=== PATIENT | female | born 1995 | race Caucasian/White ===

== ENCOUNTER → 2017-04-28 | Outpatient (CLI) | payer BC ==
[~2017-04-28] MED LIST: NAPR500T PO
== END ==
LOC: M SMT 09:32
PROVIDERS: ATTEND Obstetrics & Gynecology
DX: Z11.3 Encounter for screening for infections with a predominantly sexual mode of transmission (principal)
CPT/HCPCS: 36415; 86705; 86709; 86780; 86803; 87340; 87491; 87591; 87899; G0123

== ENCOUNTER → 2018-01-21 | Outpatient (REF) | payer BC | LOC: M LAB REF 21:19 | DX: J02.9 Acute pharyngitis, unspecified (principal) | CPT/HCPCS: 87430 ==

== ENCOUNTER → 2018-04-10 | Outpatient (REF) | payer BC ==
[2018-04-10 19:32] LABS: APPEARANCE, URINE CLOUDY (CLEAR); BACTERIA, URINE AUTO 2+ (NEGATIVE); BILIRUBIN, URINE AUTO NEGATIVE (NEGATIVE); BLOOD, URINE BLOOD 2+ (NEGATIVE); COLOR, URINE YELLOW (YELLOW); GLUCOSE, URINE (UA) AUTO NEGATIVE (NEGATIVE); KETONE, URINE AUTO 1+ mg/dL (NEGATIVE); LEUKOCYTE ESTERASE, URINE AUTO 3+ (NEGATIVE); MUCUS, URINE SMALL (NEGATIVE); NITRITE, URINE AUTO POSITIVE (NEGATIVE); PROTEIN, URINE AUTO 2+ mg/dL (NEGATIVE); RBC, URINE AUTO 12 /HPF (0-3); SPECIFIC GRAVITY URINE AUTO 1.014 (1.002-1.035); SQUAMOUS EPITHELIAL CELL UR AU 8 /HPF (0-6); UROBILINOGEN, URINE AUTO 0.2 mg/dL (0.0-2.0); WBC, URINE AUTO TNTC /HPF (0-3)
== END ==
LOC: M LAB REF 16:38
DX: N39.0 Urinary tract infection, site not specified (principal); J02.9 Acute pharyngitis, unspecified

== ENCOUNTER → 2019-01-22 | Outpatient (REF) | payer BC ==
[~2019-01-22] MED LIST changes: +NAPR-837 PO; -NAPR500T PO
[2019-01-22 17:40] LABS: URINE PREG TEST POSITIVE (NEGATIVE)
== END ==
LOC: M LAB REF 16:28
PROVIDERS: ATTEND Physician Assistant Medical
DX: Z32.00 Encounter for pregnancy test, result unknown (principal)

== ENCOUNTER → 2019-01-24 | Outpatient (REF) | payer BC | LOC: M LAB REF 15:10 | PROVIDERS: ATTEND Physician Assistant | DX: Z31.81 Encounter for male factor infertility in female patient (principal) ==

== ENCOUNTER → 2019-02-23 | Outpatient (CLI) | payer BC ==
[2019-02-23 18:52] LABS: BASO % 0.2 % (0.0-1.0); EOS # 0.1 10^3/uL (0.0-0.50); EOS % 0.8 % (0.0-3.0); HEMATOCRIT 43.2 % (36.0-47.0); HEMOGLOBIN 14.2 g/dl (12.0-15.5); LYMPH # 1.5 10^3/uL (1.5-6.5); LYMPH % 16.4 % (24.0-44.0); MEAN CORPUSCULAR HEMOGLOBIN 32.3 pg (27.0-33.0); MEAN CORPUSCULAR HGB CONC 32.9 g/dl (32.0-36.5); MEAN CORPUSCULAR VOLUME 98.4 fl (80.0-96.0); MONO # 0.5 10^3/uL (0.0-0.8); MONO % 5.1 % (0.0-5.0); NEUTROPHILS # 6.9 10^3/uL (1.8-7.7); NEUTROPHILS % 77.1 % (36.0-66.0); PLATELET COUNT, AUTOMATED 304 10^3/uL (150-450); RED BLOOD COUNT 4.39 10^6/uL (4.00-5.40)
[2019-02-23 21:11] LABS: CHLAMYDIA DNA AMPLIFICATION POSITIVE (NEGATIVE); GC DNA AMPLIFICATION NEGATIVE (NEGATIVE)
[2019-02-26 10:31] LABS: HIV 1&2 SCREEN CENTAUR NEGATIVE (NEGATIVE); RUBELLA IgG QUALITATIVE IMMUNE (IMMUNE)
== END ==
LOC: M SMT 13:59
PROVIDERS: ATTEND Advanced Practice Midwife
DX: Z34.81 Encounter for supervision of other normal pregnancy, first trimester (principal); Z3A.00 Weeks of gestation of pregnancy not specified

== ENCOUNTER → 2019-03-30 | Outpatient (REF) | payer BC | LOC: M LAB REF 13:06 | PROVIDERS: ATTEND Advanced Practice Midwife | DX: Z34.82 Encounter for supervision of other normal pregnancy, second trimester (principal) ==

== ENCOUNTER → 2019-04-27 | Outpatient (REF) | payer BC ==
[2019-04-27 19:09] LABS: CHLAMYDIA DNA AMPLIFICATION NEGATIVE (NEGATIVE); GC DNA AMPLIFICATION NEGATIVE (NEGATIVE)
== END ==
LOC: M LAB REF 17:13
PROVIDERS: ATTEND Obstetrics & Gynecology
DX: Z34.82 Encounter for supervision of other normal pregnancy, second trimester (principal); Z3A.00 Weeks of gestation of pregnancy not specified

== ENCOUNTER → 2019-05-04 | Outpatient (CLI) | payer BC ==
--- NOTE | 2019-05-04 11:18 | REP ---
OB ULTRASOUND: Real-time sonographic evaluation of the gravid uterus is performed. There is a single living intrauterine gestation. Estimated gestational age 20 weeks 2 days, EDC 09/19/2019. Today's measurements indicate appropriate growth. BPD 50 mm = 21 weeks 1 day, 71st percentile HC 187 mm = 21 weeks 0 days, 70th percentile AC 151 mm = 20 weeks 2 days, 51st percentile Femur length 35 mm = 21 weeks 0 days, 67th percentile HC/AC ratio 1.24 at the upper limits of normal range 1.06-1.24. Estimated weight 370 grams, 60th percentile. Cervix is closed and measures 4.1 cm in length. heart rate 136 beats per minute. SEEN/GROSSLY UNREMARKABLE Lateral ventricles Yes Posterior fossa Yes Upper lip Yes Four-chamber heart Yes LVOT Yes RVOT Yes Stomach Yes Cord insertion Yes Three vessel cord Yes Kidneys Yes Bladder Yes Spine Yes position: Vertex. Placenta: Anterior and grade 0 with no previa or abruption. Amniotic fluid: Appears within normal limits. Electronically Signed by Cory Stark MD 05/06/2019 07:22 P
== END ==
LOC: M RAD 09:47
PROVIDERS: ATTEND Advanced Practice Midwife
DX: Z34.82 Encounter for supervision of other normal pregnancy, second trimester (principal); Z3A.20 20 weeks gestation of pregnancy

== ENCOUNTER → 2019-06-27 | Outpatient (CLI) | payer BC ==
[2019-06-27 13:31] LABS: HEMATOCRIT 37.4 % (36.0-47.0); HEMOGLOBIN 12.6 g/dl (12.0-15.5); MEAN CORPUSCULAR HEMOGLOBIN 34.1 pg (27.0-33.0); MEAN CORPUSCULAR HGB CONC 33.7 g/dl (32.0-36.5); MEAN CORPUSCULAR VOLUME 101.1 fl (80.0-96.0); PLATELET COUNT, AUTOMATED 222 10^3/uL (150-450); WHITE BLOOD COUNT 8.2 10^3/uL (4.0-10.0)
== END ==
LOC: M SMT 09:02
PROVIDERS: ATTEND Advanced Practice Midwife
DX: Z34.02 Encounter for supervision of normal first pregnancy, second trimester (principal); Z36.89 Encounter for other specified antenatal screening

== ENCOUNTER → 2019-08-27 | Outpatient (REF) | payer OTHER | LOC: M LAB REF 16:57 | PROVIDERS: ATTEND Obstetrics & Gynecology | DX: Z34.83 Encounter for supervision of other normal pregnancy, third trimester (principal) ==

== ENCOUNTER 2019-08-30 17:00 | Outpatient (CLI) | payer OTHER ==
[~2019-08-30] VITALS: Ht 160 cm; Wt 64.0 kg
[2019-08-30 17:32] VITALS: BP 112/75
[2019-08-30] MEDS ORDERED: PRENTAB9 PO (18:15)
[2019-08-30 19:22] VITALS: BP 128/73
== END 2019-08-30 19:39 | disposition home or self-care (01) ==
LOC: M LDO 17:00
PROVIDERS: ATTEND Obstetrics & Gynecology
DX: O47.1 False labor at or after 37 completed weeks of gestation (principal); Z3A.37 37 weeks gestation of pregnancy
CPT/HCPCS: 59025; G0378; G0463

== ENCOUNTER 2019-09-12 21:48 | Inpatient (IN) | payer OTHER ==
[~2019-09-12] VITALS: Ht 160 cm; Wt 62.8 kg
[~2019-09-12 21:48] MED LIST changes: +PRENTAB9 PO
[2019-09-12 22:08] VITALS: BP 104/62
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
[2019-09-12] MEDS ORDERED: OXYTOCIN DRIP 30 UNITS in IV 1 EA IV SCH (23:30)
[2019-09-12] MEDS ORDERED: LR 1,000 ML IV SCH (23:30)
[2019-09-12] MEDS ORDERED: LACTATED RINGER'S 1000 ML IV STA (23:30)
[2019-09-13] VITALS (37 sets, daily range): BP systolic 92–131; BP diastolic 52–82
[2019-09-13 00:14] LABS: MEAN CORPUSCULAR HEMOGLOBIN 32.3 pg (27.0-33.0); MEAN CORPUSCULAR HGB CONC 33.3 g/dl (32.0-36.5); MEAN CORPUSCULAR VOLUME 96.8 fl (80.0-96.0); PLATELET COUNT, AUTOMATED 271 10^3/uL (150-450); RED BLOOD COUNT 3.72 10^6/uL (4.00-5.40); WHITE BLOOD COUNT 11.5 10^3/uL (4.0-10.0)
[2019-09-13] MEDS ORDERED: BUTORPHANOL 2 MG/ML INJ (J0595) IV ONE (03:30)
[2019-09-13] MEDS ORDERED: PROMETHAZINE INJ 25 MG/ML VIAL (J2550) IV ONE (03:30)
[2019-09-13] MEDS ORDERED: FENTANYL 2MCG/ML ROPIVACAINE 0.2% IN 0.9% NACL 100ML IVBAG As Ordered ONE (07:18)
[2019-09-13] MEDS: PRENATAL VITAMINS CHEWABLE TABLET PO SCH (09:00)
[2019-09-13] MEDS ORDERED: LACTATED RINGER'S 1000 ML IV PRN (09:45)
[2019-09-13] MEDS ORDERED: diphenhydrAMINE INJ 50MG/ML VIAL (J1200) IV PRN (09:45)
[2019-09-13] MEDS ORDERED: ePHEDrine SULFATE 25 MG/5 ML(5MG/ML) SYRINGE IV PRN (09:45)
[2019-09-13] MEDS ORDERED: EPIDURAL/PCA KEYS XX PRN (09:45)
[2019-09-13] MEDS ORDERED: NALOXONE INJ 0.4 MG/1 ML VIAL (J2310) IV PRN (09:45)
[2019-09-13] MEDS ORDERED: REFRIGERATOR IV KEYS XX PRN (09:45)
[2019-09-13] MEDS ORDERED: FENTANYL/ROPIVACAINE/NACL BAG 100 ML EPIDURAL SCH (09:45)
[2019-09-13] MEDS ORDERED: ONDANSETRON 4MG/2ML VIAL (J2405) IV PRN (09:45)
[2019-09-13] MEDS ORDERED: EPIDURAL COMMENT XX SCH (09:45)
[2019-09-13] MEDS ORDERED: OXYTOCIN DRIP 30 UNITS in IV 1 EA IV SCH (10:05)
[2019-09-13] MEDS ORDERED: IBUPROFEN 800 MG TAB PO PRN (10:15)
[2019-09-13] MEDS ORDERED: METHYLERGONOVINE MALEATE 0.2 MG TAB PO PRN (10:15)
[2019-09-13] MEDS ORDERED: MEASLES,MUMPS,RUBELLA VACCINE INJ (MMR-II) (90707) SC SCH (10:15)
[2019-09-13] MEDS ORDERED: RHOGAM 300 MCG (1500 IU) INJ (J2790) IM SCH (10:15)
[2019-09-13] MEDS ORDERED: ACETAMINOPHEN 500 MG TAB PO PRN (10:15)
[2019-09-13] MEDS ORDERED: DOCUSATE SODIUM 100 MG CAP PO PRN (10:15)
[2019-09-13] MEDS ORDERED: ANUSOL HC CREAM 30GM TOP PRN (10:15)
[2019-09-13] MEDS ORDERED: DIBUCAINE 1% OINTMENT 30GM TOP PRN (10:15)
[2019-09-13] MEDS ORDERED: MOM 30ML SUSPENSION UDC PO PRN (10:15)
[2019-09-13] MEDS ORDERED: ACETAMINOPHEN TAB 650MG DOSE (2X325MG) PO PRN (10:15)
--- NOTE | 2019-09-13 11:23 | DN ---
DATE OF DELIVERY: 09/13/2019 TIME OF : 0908 hours GENDER: Female. SCORE: 9 and 9. WEIGHT: 2810 grams (6 pounds 3 ounces). LACERATIONS: None. ESTIMATED BLOOD LOSS: 200 mL. ANESTHESIA: Epidural. COUNTS: Five laparotomy sponges accounted for prior to and after delivery. DELIVERY NOTE: On 09/13/2019, at 0908 hours, Mrs. Rosales a 24-year-old, 1, now para 1 had a spontaneous vaginal delivery of a live-born female , score 9 and 9. Weight was 2810 grams (6 pounds 3 ounces). Head was delivered occiput anterior (OA) over intact perineum, followed by delivery of right anterior shoulder, left posterior shoulder and corpus. was handed to mom with good cry. Cord was clamped times two. I t was cut by the father of baby under my direction. Placenta was then drained delivered grossly intact. Premixed bag of 500 mL of normal saline with 30 units of Pitocin was then bolused along with uterine massage. The uterus was firm. On inspection, cervix, vagina and perineum was grossly intact, hemostatic. Mom and baby to recovery in stable condition. The couple decided name their daughter,Vaishali. FAYE
[2019-09-13] MEDS: IBUPROFEN 600 MG TAB PO PRN (15:08)
[2019-09-14 06:16] VITALS: BP 81/45
[2019-09-14 06:51] VITALS: BP 89/50
[2019-09-14] MEDS: PRENATAL VITAMINS CHEWABLE TABLET PO SCH (07:52)
[2019-09-14] MEDS: IBUPROFEN 600 MG TAB PO PRN ×2 (07:53→19:27)
[2019-09-14 17:53] VITALS: BP 97/59
[2019-09-15 06:00] VITALS: BP 92/58
[2019-09-15] MEDS: PRENATAL VITAMINS CHEWABLE TABLET PO SCH (08:26)
== END 2019-09-15 12:15 | disposition home or self-care (01) | DRG 807 ==
LOC: M LDO 21:48 → M LDI 23:17 → M OBS 09-13 11:20
PROVIDERS: ADMIT Advanced Practice Midwife; ATTEND Obstetrics & Gynecology
PROC: 10E0XZZ Delivery of Products of Conception, External Approach (ICD-10-PCS; principal; 2019-09-13)
DX: O80 Encounter for full-term uncomplicated delivery (principal); Z37.0 Single live birth; Z3A.39 39 weeks gestation of pregnancy

== ENCOUNTER → 2020-06-24 | Outpatient (CLI) | payer OTHER ==
--- NOTE | 2020-07-15 08:14 | REP ---
COMPLETE OBSTETRICAL ULTRASOUND CLINICAL: Anatomical assessment. TECHNIQUE: Transabdominal obstetrical ultrasound with color Doppler evaluation. FINDINGS: Ultrasound examination demonstrates single live intrauterine in variable presentation. Placenta noted anteriorly and grade 0 without evidence for placenta previa or abruption. Amniotic fluid volume is normal. Cervix measures 4 cm in length and appears closed. Gestational age by current biometrical measurements 18 weeks 5 days with estimated date of delivery 11/20/2020. heart rate 130 beats per minute. Estimated weight 258 grams (48th percentile). Anatomical assessment demonstrates normal cisterna magna, cavum, thalamus, spine, stomach, kidneys/bladder, four chamber heart/cardiac ventricular outflow tracts, three-vessel cord/cord insertion, facial features, and extremities. IMPRESSION: Single live intrauterine in variable presentation demonstrating appropriate estimated weight and growth. Anatomical assessment is complete and normal. No gross abnormalities are identified. MTDD
== END ==
LOC: M RAD 13:51
PROVIDERS: ATTEND Advanced Practice Midwife
DX: Z34.82 Encounter for supervision of other normal pregnancy, second trimester (principal); Z3A.18 18 weeks gestation of pregnancy

== ENCOUNTER → 2020-08-27 | Outpatient (REF) | payer OTHER ==
[2020-08-27 13:15] LABS: HEMATOCRIT 34.4 % (36.0-47.0); HEMOGLOBIN 11.2 g/dl (12.0-15.5); MEAN CORPUSCULAR HEMOGLOBIN 31.8 pg (27.0-33.0); MEAN CORPUSCULAR HGB CONC 32.6 g/dl (32.0-36.5); MEAN CORPUSCULAR VOLUME 97.7 fl (80.0-96.0); PLATELET COUNT, AUTOMATED 263 10^3/uL (150-450); RED BLOOD COUNT 3.52 10^6/uL (4.00-5.40); WHITE BLOOD COUNT 6.8 10^3/uL (4.0-10.0)
== END ==
LOC: M PLALAB 11:05
PROVIDERS: ATTEND Advanced Practice Midwife
DX: Z34.82 Encounter for supervision of other normal pregnancy, second trimester (principal); Z3A.00 Weeks of gestation of pregnancy not specified

== ENCOUNTER → 2020-08-31 | Outpatient (CLI) | payer SELFPAY | LOC: M LABSMTC 11:48 | PROVIDERS: ATTEND Pediatrics | DX: Z20.828 Contact with and (suspected) exposure to other viral communicable diseases (principal) ==

== ENCOUNTER → 2020-10-31 | Outpatient (REF) | payer OTHER | LOC: M SFHCWAGY 16:49 | PROVIDERS: ATTEND Obstetrics & Gynecology | DX: O99.820 Streptococcus B carrier state complicating pregnancy (principal); Z3A.36 36 weeks gestation of pregnancy | CPT/HCPCS: 87081; G0463 ==

== ENCOUNTER 2020-11-19 08:19 | Inpatient (IN) | payer OTHER ==
[~2020-11-19] VITALS: Ht 157.5 cm; Wt 66.6 kg
[2020-11-19] VITALS (35 sets, daily range): BP systolic 87–118; BP diastolic 50–73
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
--- OUTSIDE RECORDS SUMMARY | 2020-11-19 08:24 | CCD ---
Author Author [facility] Organization [facility] Address Unknown Phone Unavailable Care Team Providers Care Hotel Operations Manager Name Role Phone Arleth Rawls Unavailable PROBLEMS Type Condition ICD9-CM Code [id number] Code Onset Dates Condition S tatus SNOMED Code Notes Problem Supervision of other normal Z34.80 Ac tive [id number] ALLERGIES No Known Allergies ENCOUNTERS from 1995 to 2020-10-05 Encounter Location Date Provider Diagnosis [facility] [address] [place] [address] Sep, [facility] Rawls Encounter for superv ision of other normal , third trimester Z34.83 and 31 weeks gestation of Z3A.31 IMMUNIZATIONS Vaccine Route Administration Date Status TDAP [...] School Language: Question Answer Notes Languages spoken: Greenlandic Alcohol Screening: Question Answer Notes Did you have a drink containing alcohol in the past year? No Points 0 Interpretation Negative Tobacco Use: Question Answer Notes Are you a: former smoker How long has it been since you last smoked? 6-12 months REASON FOR REFERRAL No Information VITAL SIGNS Weight 139 lbs Sep, Height 63 in Sep, BMI 24.623 kg/m2 Sep, Blood pressure systolic 114 mm Hg Sep, Blood pressure diastolic 66 mm Hg Sep, MEDICATIONS Medication SIG (Take, Route, Frequency, Duration) [...] Notes Treatment Notes Treatm ent Clinical Notes Sep, Encounter for supervision of other normal , third trimester (ICD-10 - Z34.83) Sep, 31 weeks gestation of (ICD-10 - Z3A.31 ) PLAN OF TREATMENT Next Appt Details 2 Weeks Reason:PN Provider Name:Frankie Edwards, 01:20:00 PM, [address] [place], [address], Follow Up:2 WeeksPN Insurance Providers Payer Name Payer Address Payer Phone Insured Name Patient Relati onship to Insured Coverage Start Date Coverage End Date [facility] [employer] [address] [place] [id number] CITL[place] VARGAS
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
--- OUTSIDE RECORDS SUMMARY | 2020-11-19 08:25 | CCD ---
Author Author [facility] Organization [facility] Address Unknown Phone Unavailable Support Name Relationship Address Phone UE Next Of Kin Unknown Unavailable CITLALY VARGAS Next Of Kin [address] [id number] SAMANTHA VARGAS Next Of Kin [address] [phone] [place] [address] LULU DALTON Next Of Kin [address] [place] [phone] MAGG[address] Next Of Kin [address] [place] [address] HOMER DALTON Next Of Kin [address] [place] [address] [place] [address] CITLALY VARGAS [address] [place] [address] Unavailable Re-disclosure Warning The records that you are about to access may contain information from federally-assisted alcohol or drug abuse programs. If such information is present, then the following federally mandated warning applies: This information has been disclosed to you from records protected by federal confidentiality rules (42 CFR part 2). The federal rules prohibit you from making any further disclosure of this information unless further disclosure is expressly permitted by the written consent of the person to whom it pertains or as otherwise permitted by 42 CFR part 2. A general authorization for the release of medical or other information is NOT sufficient for this purpose. The Federal rules restrict any use of the information to criminally investigate or prosecute any alcohol or drug abuse patient.The records that you are about to access may contain highly sensitive health information, the redisclosure of which is protected by Article 27-F of the [facility] Public Health law. If you continue you may have access to information: Regarding HIV / AIDS; Provided by facilities licensed or operated by the [facility] Office of Mental Health; or Provided by the [facility] Office for People With Developmental Disabilities. If such information is present, then the following [facility] mandated warning applies: This information has been disclosed to you from confidential records which are protected by state law. State law prohibits you from making any further disclosure of this information without the specific written consent of the person to whom it pertains, or as otherwise permitted by law. Any unauthorized further disclosure in violation of state law may result in a fine or group home sentence or both. A general authorization for the release of medical or other information is NOT sufficient authorization for further disc losure. Family History Family Member Name Family Member Gender Family Member Status Date o f Status Description Data Source(s) Unknown Unknown Problem MEDENT ([facility], ) Encounters Encounter Providers Location Date Indications Data Source(s ) ( ESTOB) [facility] [id number] 10/31/2020 12:00:00 AM EST eCW1 ([facility]) ( ESTOB) [facility] [id number] 10/21/2020 12:00:00 AM EST eCW1 ([facility]) ( ESTOB) [facility] OB [address] [place] [address] 09/24/2020 12:00:00 AM EST eCW1 ([facility]) ( ESTOB) [facility] [address] [place] [address] 09/10/2020 12:00:00 AM EST eCW1 ([facility]) ( ESTOB) [facility] [id number] 08/27/2020 12:00:00 AM EST eCW1 ([facility]) ( ESTOB) [facility] OB [address] [place] [address] 07/30/2020 12:00:00 AM EDT eCW1 ([facility]) ( ESTOB) [facility] [address] [place] [address] 05/01/2020 12:00:00 AM EDT eCW1 ([facility]) [facility] [address] [place] [address] 10/25/2019 12:00:00 AM EST eCW1 ([facility]) Medications Medication Brand Name Start Date Product Form Dose Route Admi nistrative Instructions Pharmacy Instructions Status Indications Reaction Description Data Source(s) Daphne 0.35 MG Daphne 0.35 MG 10/24/2019 12:00:00 AM EST active 1 tablet eCW1 ([facility]) Insurance Providers Payer name Policy type / Coverage type Policy ID Covered republican ID Covered republican's relationship to lenz Policy Lenz Plan Information [facility] [employer] [id number] [facility] [id number] SELF PAY ONLY [id number] [facility] REG O [id number] S [id number] [facility] [id number] [facility] [id number] OTHER1 [facility] FEDERAL EMPLOYEE PROGRAM [id number] [id number] [facility] [id number] [facility] Health Maintenance Organization (HMO) [id number] Problems, Conditions, and Diagnoses Code Display Name Description Problem Type Effective Dates Data Source(s) Z34.80 care Supervision of other normal Barry rodríguez 05/01/2020 12:00:00 AM EDT eCW1 ([facility]) Surgeries/Procedures Procedure Description Date Indications Data Source(s) CARE VISIT 10/24/2019 12:00:00 AM EST eCW1 ([facility]) Results ID Date Data Source GROUP B STREP CULTURE 10/31/2020 12:00:00 AM EST eCW1 ([facility]) Name Value Range Interpretation Code Description Data Malka rce(s) Supporting Document(s) GROUP B STREP CULTURE eCW1 ([facility]) ID Date Data Source [id number] 08/31/2020 12:00:00 AM EST [facility] Name Value Range Interpretation Code Description Data Malka rce(s) Supporting Document(s) 2019-nCoV RNA XXX MAURICIO+probe-Imp [facility] This lab was ordered by [facility] and reported by [facility]. ID Date Data Source PAP REQUEST FOR SERVICE 07/18/2020 05:25:03 AM EDT eCW1 ([facility]) Name Value Range Interpretation Code Description Data Malka rce(s) Supporting Document(s) eCW1 ([facility]) ID Date Data Source URINE CULTURE 05/02/2020 11:25:04 AM EDT eCW1 ([facility]) Name Value Range Interpretation Code Description Data Malka rce(s) Supporting Document(s) eCW1 ([facility]) ID Date Data Source Type and Screen Prenatal1 05/02/2020 09:16:31 AM EDT eCW1 ([facility]) Name Value Range Interpretation Code Description Data Malka rce(s) Supporting Document(s) NEGATIVE eCW1 ([facility]) ID Date Data Source CBC - Complete Blood Count 05/02/2020 09:16:23 AM EDT eCW1 ( [facility]) Name Value Range Interpretation Code Description Data Malka rce(s) Supporting Document(s) 9.4 eCW1 ([facility]) 13.9 eCW1 ([facility]) 4.38 eCW1 ([facility]) 41.5 eCW1 ([facility]) 94.7 eCW1 ([facility]) 11.7 eCW1 ([facility]) 31.7 eCW1 ([facility]) 33.5 eCW1 ([facility]) 291 eCW1 ([facility]) ID Date Data Source CHLAMYDIA & GC DNA AMPLIFICAT 05/02/2020 09:16:14 AM EDT eCW 1 ([facility]) Name Value Range Interpretation Code Description Data Malka rce(s) Supporting Document(s) Chlamydia trachomatis rRNA [Presence] in Unspecified specimen by Probe and target amplification method NEGATIVE eCW1 ([facility]) ID Date Data Source HBSAG 05/02/2020 02:17:34 AM EDT eCW1 ([facility]) Name Value Range Interpretation Code Description Data Malka rce(s) Supporting Document(s) NEGATIVE eCW1 ([facility]) ID Date Data Source HEPATITIS C ANTIBODY INDEX 05/02/2020 02:17:27 AM EDT eCW1 ( [facility]) Name Value Range Interpretation Code Description Data Malka rce(s) Supporting Document(s) 0.1 eCW1 ([facility]) ID Date Data Source RUBELLA IMMUNE STATUS IgG 05/02/2020 02:17:18 AM EDT eCW1 ([facility]) Name Value Range Interpretation Code Description Data Malka rce(s) Supporting Document(s) IMMUNE eCW1 ([facility]) ID Date Data Source SYPHILIS ANTIBODY (RPR SCREEN) 05/02/2020 02:17:12 AM EDT eC W1 ([facility]) Name Value Range Interpretation Code Description Data Malka rce(s) Supporting Document(s) NONREACTIVE eCW1 ([facility]) ID Date Data Source [id number] 05/02/2020 02:16:54 AM EDT eCW1 ([facility]) Name Value Range Interpretation Code Description Data Malka rce(s) Supporting Document(s) eCW1 ([facility]) Procedure Social History Code Duration Value Status Description Data Source(s ) Smoking 11/07/2020 12:00:00 AM EST Former Smoker completed Former Smoker eCW1 ([facility]) Smoking 10/21/2020 12:00:00 AM EST Former Smoker completed Former Smoker eCW1 ([facility]) Smoking 09/22/2020 12:00:00 AM EST Former Smoker completed Former Smoker eCW1 ([facility]) Smoking 09/08/2020 12:00:00 AM EST Former Smoker completed Former Smoker eCW1 ([facility]) Smoking 09/08/2020 12:00:00 AM EST Former Smoker completed Former Smoker eCW1 ([facility]) Smoking 07/30/2020 12:00:00 AM EDT Former Smoker completed Former Smoker eCW1 ([facility]) Smoking 07/30/2020 12:00:00 AM EDT Former Smoker completed Former Smoker eCW1 ([facility]) Vital Signs ID Date Data Source UNK Name Value Range Interpretation Code Description Data Source(s) Diastolic blood pressure 62 mm[Hg] 62 mm[Hg] eCW1 ([facility]) Systolic blood pressure 102 mm[Hg] 102 mm[Hg] e CW1 ([facility]) Body mass index (BMI) [Ratio] 25.154 kg/m2 25.1 54 kg/m2 eCW1 ([facility]) Body height 63 [in_i] 63 [in_i] eCW1 ([facility]) Body weight 142 [lb_av] 142 [lb_av] eCW1 ([facility]) Diastolic blood pressure 68 mm[Hg] 68 mm[Hg] eCW1 ([facility]) Systolic blood pressure 108 mm[Hg] 108 mm[Hg] e CW1 ([facility]) Body mass index (BMI) [Ratio] 25.26 kg/m2 25.26 kg/m2 W1 ([facility]) Body height 63 [in_i] 63 [in_i] eCW1 ([facility]) Body weight 64.68 kg 64.68 kg eCW1 ([facility]) Body weight 142.6 [lb_av] 142.6 [lb_av] eCW1 ([facility]) Diastolic blood pressure 66 mm[Hg] 66 mm[Hg] eCW1 ([facility]) Systolic blood pressure 114 mm[Hg] 114 mm[Hg] e CW1 ([facility]) Body mass index (BMI) [Ratio] 24.623 kg/m2 24.6 23 kg/m2 W1 ([facility]) Body height 63 [in_i] 63 [in_i] eCW1 ([facility]) Body weight 139 [lb_av] 139 [lb_av] eCW1 ([facility]) Diastolic blood pressure 56 mm[Hg] 56 mm[Hg] eCW1 ([facility]) Systolic blood pressure 98 mm[Hg] 98 mm[Hg] e CW1 ([facility]) Body mass index (BMI) [Ratio] 24.375 kg/m2 24.3 75 kg/m2 eCW1 ([facility]) Body height 63 [in_i] 63 [in_i] eCW1 ([facility]) Body weight 137.6 [lb_av] 137.6 [lb_av] eCW1 ([facility]) Diastolic blood pressure 80 mm[Hg] 80 mm[Hg] eCW1 ([facility]) Systolic blood pressure 100 mm[Hg] 100 mm[Hg] e CW1 ([facility]) Body mass index (BMI) [Ratio] 24.268 kg/m2 24.2 68 kg/m2 eCW1 ([facility]) Body height 63 [in_i] 63 [in_i] eCW1 ([facility]) Body weight 62.14 kg 62.14 kg W1 ([facility]) Body weight 137 [lb_av] 137 [lb_av] eCW1 ([facility]) Diastolic blood pressure 64 mm[Hg] 64 mm[Hg] eCW1 ([facility]) Systolic blood pressure 106 mm[Hg] 106 mm[Hg] e CW1 ([facility]) Body mass index (BMI) [Ratio] 22.497 kg/m2 22.4 97 kg/m2 eCW1 ([facility]) Body height 63 [in_i] 63 [in_i] eCW1 ([facility]) Body weight 127 [lb_av] 127 [lb_av] eCW1 ([facility]) Diastolic blood pressure 64 mm[Hg] 64 mm[Hg] eCW1 ([facility]) Systolic blood pressure 102 mm[Hg] 102 mm[Hg] e CW1 ([facility]) Body mass index (BMI) [Ratio] 20.017 kg/m2 20.0 17 kg/m2 eCW1 ([facility]) Body height 63 [in_i] 63 [in_i] eCW1 ([facility]) Body weight 113 [lb_av] 113 [lb_av] eCW1 ([facility]) Diastolic blood pressure 54 mm[Hg] 54 mm[Hg] eCW1 ([facility]) Systolic blood pressure 100 mm[Hg] 100 mm[Hg] e CW1 ([facility]) Body mass index (BMI) [Ratio] 21.18 kg/m2 21.18 kg/m2 eCW1 ([facility]) Body height 63 [in_us] 63 [in_us] eCW1 ([facility]) Body weight Measured 119.6 [lb_av] 119.6 [lb_av ] W1 ([facility]) Patient Treatment Plan of Care Planned Activity Planned Date Details Description Data Source (s) Daphne 0.35 MG 10/24/2019 12:00:00 AM EST eCW1 ([facility])
[2020-11-19] MEDS ORDERED: miSOPROStol 50MCG 1/2 TABLET PO ONE (09:45)
[2020-11-19 10:10] LABS: HEMATOCRIT 37.3 % (36.0-47.0); HEMOGLOBIN 12.2 g/dl (12.0-15.5); MEAN CORPUSCULAR HEMOGLOBIN 30.7 pg (27.0-33.0); MEAN CORPUSCULAR HGB CONC 32.7 g/dl (32.0-36.5); PLATELET COUNT, AUTOMATED 252 10^3/uL (150-450); RED BLOOD COUNT 3.97 10^6/uL (4.00-5.40); WHITE BLOOD COUNT 5.9 10^3/uL (4.0-10.0)
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
[2020-11-19] MEDS ORDERED: OXYTOCIN DRIP 30 UNITS in IV 1 EA IV SCH ×2 (14:15→21:46)
[2020-11-19] MEDS ORDERED: LACTATED RINGER'S 1000 ML IV ONE (14:15)
[2020-11-19] MEDS: LR 1,000 ML IV SCH ×2 (14:31→16:41)
[2020-11-19] MEDS ORDERED: ONDANSETRON 4MG/2ML VIAL IV ONE (16:30)
[2020-11-19] MEDS ORDERED: FENTANYL 2MCG/ML ROPIVACAINE 0.2% IN 0.9% NACL 100ML IVBAG As Ordered ONE (16:45)
[2020-11-19] MEDS ORDERED: diphenhydrAMINE 50MG/ML VIAL (J1200) IV PRN (17:15)
[2020-11-19] MEDS ORDERED: REFRIGERATOR IV KEYS XX PRN (17:15)
[2020-11-19] MEDS ORDERED: EPIDURAL COMMENT XX SCH (17:15)
[2020-11-19] MEDS ORDERED: EPIDURAL/PCA KEYS XX PRN (17:15)
[2020-11-19] MEDS ORDERED: LACTATED RINGER'S 1000 ML IV PRN (17:15)
[2020-11-19] MEDS ORDERED: ONDANSETRON 4MG/2ML VIAL IV PRN (17:15)
[2020-11-19] MEDS ORDERED: ePHEDrine SULFATE 25 MG/5 ML(5MG/ML) SYRINGE IV PRN (17:15)
[2020-11-19] MEDS ORDERED: NALOXONE INJ 0.4MG/1ML VIAL (J2310 PER 1MG) IV PRN (17:15)
[2020-11-19] MEDS ORDERED: FENTANYL/ROPIVACAINE/NACL BAG 100 ML EPIDURAL SCH (17:15)
[2020-11-19] MEDS ORDERED: ACETAMINOPHEN TAB 650MG DOSE (2X325MG) PO PRN (22:00)
[2020-11-19] MEDS ORDERED: RHOGAM 300 MCG (1500 IU) INJ (J2790) IM SCH (22:00)
[2020-11-19] MEDS ORDERED: DOCUSATE SODIUM 100MG CAPSULE PO PRN (22:00)
[2020-11-19] MEDS ORDERED: IBUPROFEN 600MG TAB PO PRN (22:00)
[2020-11-19] MEDS ORDERED: IBUPROFEN 800 MG TAB PO PRN (22:00)
[2020-11-19] MEDS ORDERED: BENZOCAINE 20% HEMORRHOIDAL OINTMENT 28GM TUBE TOP PRN (22:00)
[2020-11-19] MEDS ORDERED: MEASLES,MUMPS,RUBELLA VACCINE INJ (MMR-II) (90707) SC SCH (22:00)
[2020-11-19] MEDS ORDERED: METHYLERGONOVINE MALEATE 0.2 MG TAB PO PRN (22:00)
--- NOTE | 2020-11-19 23:05 | DN ---
DELIVERY NOTE DATE OF DELIVERY: 11/19/2020 TIME OF : 2118 GENDER: Female APGARS: 8 and 9 LACERATIONS: Periurethral. ESTIMATED BLOOD LOSS: 300 mL COUNTS: Correct and verified. DESCRIPTION OF DELIVERY: Liz is a 25-year-old 2, para 2, 0, 0, 2 now, who was admitted to labor and delivery for induction of labor due to social reasons. One dose of Misoprostol was used and I.V. Pitocin and labor did ensue. She utilized an epidural for her labor coping. She had assisted rupture of membranes for a moderate amount of clear odorless fluid at 1916. She reached complete dilation at 2115. She pushed to a normal spontaneous vaginal delivery of a live female in OLGA position with restitution to LOT position at 2118. There was no nuchal cord. There was a left compound hand. The shoulders delivered with gentle downward traction and the corpus followed. The 's mouth and nares were bulb suctioned. She was placed on the maternal abdomen, crying and active. The cord was clamped x2 once pulsations ceased and cut by the father of the baby under my direction. A spontaneous expulsion of an intact placenta with three-vessel cord by Garcia mechanism was at 2123. There were trailing membranes, that were teased out with Ring forceps. Uterine hemostasis was achieved with I.V. Pitocin rapid infusion and uterine fundal massage. Estimated blood loss 300 m. Perineum and vagina inspected and noted to have a very small periurethral laceration and one interrupted suture with 3-0 Vicryl Rapide was placed for hemostasis. female weighed 3100 grams, 6 pounds 13 ounces. Apgars 8 and 9. Mom is going to breastfeed. The family have named their daughter Rody Zaldivar. At the close of delivery, lap counts, needle counts and instrument counts were correct and verified.
[2020-11-20] VITALS: BP 118/57
[2020-11-20 06:00] VITALS: BP 99/50
[2020-11-20] MEDS: PRENATAL VITAMINS CHEWABLE TABLET PO SCH (07:35)
[2020-11-20] MEDS: ACETAMINOPHEN 500 MG TAB PO PRN ×2 (07:37→13:15)
[2020-11-20 18:00] VITALS: BP 98/54
[2020-11-21 05:52] VITALS: BP 95/51
[2020-11-21] MEDS: ACETAMINOPHEN 500 MG TAB PO PRN (06:04)
[2020-11-21] MEDS: PRENATAL VITAMINS CHEWABLE TABLET PO SCH (10:07)
== END 2020-11-21 12:10 | disposition home or self-care (01) | DRG 807 ==
LOC: M LDI 08:19 → M OBS 23:49
PROVIDERS: ADMIT Advanced Practice Midwife; ATTEND Advanced Practice Midwife
PROC: 10E0XZZ Delivery of Products of Conception, External Approach (ICD-10-PCS; principal; 2020-11-19)
PROC: 3E0P7GC Introduction of Other Therapeutic Substance into Female Reproductive, Via Natural or Artificial Opening (ICD-10-PCS; 2020-11-19)
PROC: 10907ZC Drainage of Amniotic Fluid, Therapeutic from Products of Conception, Via Natural or Artificial Opening (ICD-10-PCS; 2020-11-19)
PROC: 0HQ9XZZ Repair Perineum Skin, External Approach (ICD-10-PCS; 2020-11-19)
DX: O64.5XX0 Obstructed labor due to compound presentation, not applicable or unspecified (principal); Z37.0 Single live birth; Z3A.39 39 weeks gestation of pregnancy; O70.0 First degree perineal laceration during delivery